=== PATIENT | male | born 1955 | race Caucasian/White ===

== ENCOUNTER 2021-01-07 06:46 | Outpatient (CLI) | payer MEDICARE, OTHER, SELFPAY ==
--- NOTE | 2021-01-07 07:15 | MR_ITS ---
WS: [id number] MRI LEFT SHOULDER NONCONTRAST TECHNIQUE: Sagittal T2, coronal T1, T2 and proton density imaging. Axial gradient PDE imaging. CLINICAL INFORMATION: M67.912 - Unspecified disorder of synovium and tendon, left shoulder COMPARISON: None. FINDINGS: Advanced arthritis AC joint with moderate surrounding edema. Surrounding periarticular soft tissue ed erika. Small amount of subacromial/subdeltoid fluid. Mild downsloping of the acromion. Slight subacromi al spurring. Small AC joint fluid collection consistent with synovitis. Mild edema in the acromium an d distal clavicle. Subacromial space is preserved. Normal supraspinatus. Normal infraspinatus. Normal subscapularis and teres minor. Mild tendinopathy in the subscapularis which appears intact. Normal biceps tendon in the bicipital gr oove. Slight medial displacement of the biceps tendon in the bicipital groove. Tendinopathy of the in tra-articular biceps tendon which appears intact. Moderate to advanced degenerative arthritis at the glenohumeral joint. Hypertrophic spurring about the glenoid with subchondral cystic change. Degenerat nathan fraying of the glenoid labrum. MR/MR shoulder LT wo con* [id number] IMPRESSION: 1. 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 2. Slight subacromial spurring with mild downsloping acromion. Small amount of subacromial/subdeltoid fluid. 3. Rotator cuff is intact. 4. Biceps tendon is intact within the bicipital groove with slight medial subl uxation. 5. Biceps labral anchor appears intact. Tendinopathy within the intra-articula r biceps tendon. 6. Advanced degenerative arthritis at the glenohumeral joint with hypertrophic spurring and subchondral cystic change with degenerative edema.
== END 2021-01-07 06:47 | disposition home or self-care (01) ==
LOC: RADSHAW 06:51
PROVIDERS: PCP Registered Nurse; Visit Provider Registered Nurse
DX: M67.912 Unspecified disorder of synovium and tendon, left shoulder (principal); M19.012 Primary osteoarthritis, left shoulder
CPT/HCPCS: 73221

== ENCOUNTER → 2021-04-28 08:52 | Outpatient (BNVA) | payer MEDICARE, OTHER, SELFPAY | PROVIDERS: PCP Registered Nurse; Visit Provider Registered Nurse | DX: Z20.822 Contact with and (suspected) exposure to COVID-19 (principal) | CPT/HCPCS: 87635 ==

== ENCOUNTER → 2022-06-14 12:31 | Outpatient (BNVA) | payer MEDICARE, OTHER, SELFPAY | PROVIDERS: PCP Registered Nurse; Referring Provider Registered Nurse; Visit Provider Podiatrist Foot & Ankle Surgery | DX: M77.52 Other enthesopathy of left foot and ankle (principal) | CPT/HCPCS: 73630; 99203 ==

== ENCOUNTER → 2022-07-12 10:19 | Outpatient (BNVA) | payer MEDICARE, OTHER, SELFPAY | PROVIDERS: PCP Registered Nurse; Visit Provider Podiatrist Foot & Ankle Surgery | DX: M77.52 Other enthesopathy of left foot and ankle (principal) | CPT/HCPCS: 99213 ==

== ENCOUNTER → 2022-09-20 12:50 | Outpatient (BNVA) | payer MEDICARE, OTHER, SELFPAY | PROVIDERS: PCP Registered Nurse; Visit Provider Podiatrist Foot & Ankle Surgery | DX: M77.52 Other enthesopathy of left foot and ankle (principal) | CPT/HCPCS: 99213 ==

== ENCOUNTER 2022-11-01 10:27 | Outpatient (CLI) | payer MEDICARE, OTHER, SELFPAY ==
--- NOTE | 2022-11-01 15:15 | MR_ITS ---
WS: [id number] MRI LEFT FOOT with and without CONTRAST. COMPARISON: LEFT foot radiograph 06/14/2022 Multiplanar, multisequence imaging is performed with and without contrast. MultiHance 20 mL IV. No acute fractures or marrow edema. Mild hallux valgus deformity. Marker is placed along the undersur face of the foot near the second metatarsal head. There is no underlying signal abnormality identifie d on precontrast imaging. The ligaments and tendons appear appropriate. No fluid surrounding the meta tarsal heads. No erosions are identified. On the postcontrast imaging there is mild enhancement and inflammation surrounding the third metatars al head. Area of enhancement involves the plantar plate and the adjacent flexor digitorum longus and brevis tendons. There is enhancement within the capsule surrounding the metatarsal head and extending greatest between the third and fourth metatarsal heads and interphalangeal joints. Indistinctness an d partial tear involving the lateral collateral ligament of the third metatarsal head. MR/MR foot LT wo/w con [id number] IMPRESSION: 1. Enhancement of the plantar soft tissues surrounding the third metatarsal hea d. There is abnormal signal closely associated with the flexor digitorum longus and brevis. The more superficial brevis could be partially torn. 2. There is displacement of the flexor digitorum tendon from being closely asso ciated with the metatarsal head and partial tear of the lateral collateral liga ment of the third metatarsal head. Consistent with injury to the capsule.
== END 2022-11-01 10:28 | disposition home or self-care (01) ==
LOC: RAD 10:28
PROVIDERS: PCP Registered Nurse; Visit Provider Podiatrist Foot & Ankle Surgery
DX: M77.52 Other enthesopathy of left foot and ankle (principal); M79.672 Pain in left foot
CPT/HCPCS: 73720; A9577

== ENCOUNTER → 2022-11-11 10:04 | Outpatient (BNVA) | payer MEDICARE, OTHER, SELFPAY | PROVIDERS: PCP Registered Nurse; Visit Provider Podiatrist Foot & Ankle Surgery | DX: M77.52 Other enthesopathy of left foot and ankle (principal); S99.922A Unspecified injury of left foot, initial encounter; X58.XXXA Exposure to other specified factors, initial encounter | CPT/HCPCS: 99214 ==

== ENCOUNTER 2022-12-08 05:49 | Day surgery (SDC) | payer MEDICARE, OTHER, SELFPAY ==
[2022-12-07 08:51] VITALS: BMI 31.8
--- NOTE | 2022-12-08 | XR_ITS ---
WS: [id number] Left foot, C-arm fluoroscopy, 12/08/2022 Clinical Data: STEVE PICS Comparison: None. Findings: Dr. Sandoval inserted a longitudinal pin to fuse the left second toe. There was a calcaneal osteotomy and osteotomy of the left fifth metatarsal XR/XR foot LT 2V [id number] Impression: Multiple left foot surgical procedures
[2022-12-08 06:04] VITALS: BP 151/103; PULSE 71; RESP 18; TEMP 36.2; O2SAT 96
[2022-12-08] MEDS: CELEcoxib 200 mg Capsule 400 MG PO (06:30)
[2022-12-08] MEDS: sodium chloride 0.9% 1,000 ML 30 ML IV (06:31)
[2022-12-08] MEDS: gabapentin 300 mg Capsule PO (06:31)
--- NOTE | 2022-12-08 06:43 | ANES.PREANE2 ---
Pre-Anesthetic Assessment Height/Weight: Height 1.83 m Weight 106.594 kg Temp Pulse Resp BP Pulse Ox O2 Del Method 97.2 F L 71 18 151/103 96 12/08/22 06:04 12/08/22 06:04 12/08/22 06:04 12/08/22 06:04 12/08/22 06:04 12/08/22 06:07 Preop Diagnosis: Left foot 2nd and 3rd Metatarsophalangeal joint plantar plate rupture Operation Date: 12/08/22 07:00 Proposed Procedures p ?Repair flexor tendon left foot 2nd and 3rd metatarsophalangeal joint CPT 24787 CPT 91281,M66.372(Left) - Henri Sandoval DPM Familial anesthetic complications: None Was Beta Renae taken within 24 hours: N/A Was Clonidine taken within 24 hours: N/A Last intake: Intake Last Liquid Date 12/07/22 Last Liquid Time 19:30 Last Solid Date 12/07/22 Last Solid Time 19:30 Social No alcohol and No tobacco Exam alert, oriented x 3, clear to auscultation bilaterally and regular rate & rhythm Airway Mallampati: Class II Dentition: full CV/HEM Hypertension Anesthetic Plan ASA status: 2 Anesthesia: MAC Risk of > 500 ml blood loss (7ml/kg in children): No Medications/Allergies Home Medications Medication Instructions Recorded Confirmed Last Taken Type losartan 50 mg tablet 50 mg PO QPM 12/07/22 12/07/22 12/06/22 History hydrocodone 5 mg-acetaminophen 325 1 tab PO Q6H PRN pain #24 tabs 12/08/22 Unknown Rx mg tablet Allergies Allergy/AdvReac Type Severity Reaction Status Date / Time No Known Allergies Allergy Verified 12/08/22 05:58 Current Medications Generic Name Dose Route Start Last Admin Trade Name Freq PRN Reason Stop Dose Admin Sodium Chloride 1,000 mls @ 30 mls/hr 12/08/22 06:00 12/08/22 06:31 Sodium Chloride 0.9% IV 12/09/22 05:59 30 mls/hr .Q24H BE Administration PFSH Anesthesia Medical History Seasonal and perennial allergic rhinitis Social History Smoking and tobacco status: never smoked Alcohol intake: never Adopted: No Caregiver/support person: No Lives independently: No service: No Current occupational status: employed Sexually active: Yes Current gender identity: Male Data Anesthesia Cardiac Studies: No Data to Display
--- NOTE | 2022-12-08 06:47 | W.PM.OPSUD ---
Surgery/Procedure H&P Update DATE OF PROCEDURE: December 08, 2022 DATE H&P PERFORMED: 11/11/22 CHANGES TO PREVIOUS DOCUMENTATION: No changes PREOP DIAGNOSIS: Left foot 2nd and 3rd Metatarsophalangeal joint plantar plate rupture PLANNED PROCEDURE: Operation Date: 12/08/22 07:00 Proposed Procedures p ?Repair flexor tendon left foot 2nd and 3rd metatarsophalangeal joint CPT 82681 CPT 95209,M66.372(Left) - Henri Sandoval DPM
[2022-12-08] MEDS: ceFAZolin 2,000 MG in sodium chloride 0.9% (plus) 50 ML 100 MG IV (06:57)
[2022-12-08 07:56] VITALS: BP 123/66; PULSE 64; RESP 14; TEMP 36.1; O2SAT 96
[2022-12-08 08:00] VITALS: BP 123/76; PULSE 62; RESP 14; O2SAT 96
[2022-12-08 08:05] VITALS: BP 125/87; PULSE 63; RESP 15; O2SAT 96
--- NOTE | 2022-12-08 08:13 | PM.OP ---
Operative Report Date of procedure: December 08, 2022 Pre-op diagnosis: Preop Diagnosis Left foot 2nd and 3rd Metatarsophalangeal joint plantar plate rupture Post-op diagnosis: Same Post-op findings: Left foot second metatarsophalangeal joint plantar plate attenuation with extensor contraction and predislocation Procedure done: Left foot flexor tendon repair/plantar plate repair CPT 35670 Implants: 1 size large tenotac 2.0 from [employer] Pathology: None Surgeon: Dr. Henri Sandoval, D.P.M. Estimated blood loss: Less than 5 cc 28 minutes Complications: None Findings: See above Procedure: Patient is a 67-year-old male that has a history of second metatarsophalangeal joint predislocation syndrome. The patient has had the aforementioned chief complaint for some time. Conservative treatment measures have been attempted and the patient has opted for surgical intervention at this time. A lengthy discussion regarding the procedure, including risks and complications has been had with the patient and is noted in the recent clinic note. Written and verbal consent have been obtained. All patient questions have been answered to the patient?s satisfaction. No written or verbal guarantees have been given or implied. The patient has been NPO since midnight. The history has been reviewed and the history and physical is current. The signed consent was confirmed and placed in the patient chart. Patient imaging has been reviewed and is consistent with the diagnosis. Under mild sedation, the patient was brought into the operating room and placed on the table in the supine position. IV antibiotics were given by the anesthesia team as preoperative surgical prophylaxis. IV sedation was then performed by the anesthesiateam. A pneumatic tourniquet was then placed about the left ankle. The operative extremity was then prepped and draped in the usual fashion. The extremity was then elevated and exsanguinated before the tourniquet was inflated to 250 mmHg. After inflation, the following procedure was then performed. Attention was directed to the left foot where predislocation of the second metatarsophalangeal joint was noted with dorsiflexion at the metatarsophalangeal joint in the sagittal plane was noted. This deformity was reducible. First, a 0.045 K wire was driven into the distal aspect of the toe and into the proximal phalanx. Next, a second wire was driven from plantar to dorsal through the proximal diaphysis of the proximal phalanx. Positioning of the wire was confirmed on C-arm imaging. Next, a #15 blade was used to make a plantar stab incision around the wire. Dissection was carried down through subcutaneous and superficial fascia to the level of the flexor tendon and plantar plate. Next, a second stab incision was made on the dorsal aspect of the second digit around the wire. Dissection was carried down to the extensor tendon. Next, a hand drill was used to drill over the wire from plantar to dorsal preparation for the tenotac implant. Next, the implant was inserted plantarly with the segmented tarsal phalangeal joint maximally plantarflexed. The dorsal component was then inserted over the wire and tensioned down. The implant was noted to be securely fixated. Good positioning of the implant was noted on C-arm imaging as well as clinically. The sites were then irrigated with sterile saline before attention was directed to closure. Incisions were closed with 4-0 nylon in horizontal mattress fashion. The tourniquet was let down and good hyperemic response was noted to all digits of the left foot. The incision sites were dressed with Xeroform, 4 x 4 gauze, Kerlix and Paco bandage. The patient tolerated the procedure and anesthesia well and without complication. The patient was transported from the operating room to the recovery room with vital signs stable and vascular status intact to all digits of the left foot. The patient was given both written and verbal instructions to remain minimal weightbearing in postoperative shoe to the operative extremity, to keep dressings/splint clean, dry and intact and to take pain medication as directed. The patient will follow-up in the outpatient setting at their scheduled appointment. The patient was discharged with my personal number and was instructed to call if any questions or issues should arise. They were discharged home once anesthesia criteria was met.
[2022-12-08 08:18] VITALS: BP 134/84; PULSE 59; RESP 16; TEMP 36.2; O2SAT 95
[2022-12-08 08:45] VITALS: BP 138/82; PULSE 57; RESP 18; O2SAT 94
--- NOTE | 2022-12-08 14:10 | ANE.PACU2 ---
Inpatient post-anesthesia follow up: Airway intact: Yes Vital signs: Temperature 97.1 F Pulse Rate 57 Respiratory Rate 18 Blood Pressure 138/82 Pulse Oximetry 94 Oxygen Delivery Me thod Room Air Oxygen Flow Rate Fraction of Inspir ed Oxygen Hydration adequate: Yes Nausea and vomiting: No Pain level: 1 Mental status: Baseline
== END 2022-12-08 09:05 | disposition home or self-care (01) ==
PROVIDERS: PCP Registered Nurse; Visit Provider Podiatrist Foot & Ankle Surgery
PROC: (CPT 28200; principal; 2022-12-08 07:00)
DX: M66.372 Spontaneous rupture of flexor tendons, left ankle and foot (principal); I10 Essential (primary) hypertension
CPT/HCPCS: 28200; 73620; 76000; C1713; J0690; J2704; J3010; J3490; J7030

== ENCOUNTER → 2022-12-23 09:10 | Outpatient (BNVA) | payer MEDICARE, OTHER, SELFPAY | PROVIDERS: PCP Registered Nurse; Visit Provider Podiatrist Foot & Ankle Surgery | DX: M77.52 Other enthesopathy of left foot and ankle (principal); S99.922A Unspecified injury of left foot, initial encounter; X58.XXXA Exposure to other specified factors, initial encounter | CPT/HCPCS: 99024 ==

== ENCOUNTER → 2023-01-06 10:59 | Outpatient (BNVA) | payer MEDICARE, OTHER, SELFPAY | PROVIDERS: PCP Registered Nurse; Visit Provider Podiatrist Foot & Ankle Surgery | DX: M77.52 Other enthesopathy of left foot and ankle (principal) | CPT/HCPCS: 99024 ==

== ENCOUNTER → 2023-02-10 09:45 | Outpatient (BNVA) | payer MEDICARE, OTHER, SELFPAY | PROVIDERS: PCP Registered Nurse; Visit Provider Podiatrist Foot & Ankle Surgery | DX: M77.52 Other enthesopathy of left foot and ankle (principal) | CPT/HCPCS: 99024 ==

== ENCOUNTER → 2023-06-08 15:02 | Outpatient (BNVA) | payer MEDICARE, OTHER, SELFPAY | PROVIDERS: PCP Registered Nurse; Visit Provider Registered Nurse | DX: R30.0 Dysuria (principal); J30.2 Other seasonal allergic rhinitis | CPT/HCPCS: 81000 ==

== ENCOUNTER → 2023-06-20 09:30 | Outpatient (BNVA) | payer MEDICARE, OTHER, SELFPAY | PROVIDERS: PCP Registered Nurse; Visit Provider Registered Nurse | DX: Z00.00 Encounter for general adult medical examination without abnormal findings (principal); E78.5 Hyperlipidemia, unspecified; E55.9 Vitamin D deficiency, unspecified; I10 Essential (primary) hypertension; E53.8 Deficiency of other specified B group vitamins; Z12.5 Encounter for screening for malignant neoplasm of prostate; Z12.11 Encounter for screening for malignant neoplasm of colon; Z71.3 Dietary counseling and surveillance; Z71.82 Exercise counseling; Z13.6 Encounter for screening for cardiovascular disorders | CPT/HCPCS: 80053; 80061; 82306; 82607; 85025 ==

== ENCOUNTER → 2023-06-27 08:56 | Outpatient (BNVA) | payer MEDICARE, OTHER, SELFPAY | PROVIDERS: PCP Registered Nurse; Referring Provider Registered Nurse; Visit Provider Surgery | DX: Z12.11 Encounter for screening for malignant neoplasm of colon (principal) | CPT/HCPCS: 99024; 99203 ==

== ENCOUNTER 2023-07-20 09:42 | Day surgery (SDC) | payer MEDICARE, OTHER, SELFPAY ==
[2023-07-20 09:55] VITALS: BP 132/93; PULSE 86; RESP 18; TEMP 36.4; O2SAT 96
[2023-07-20 09:56] VITALS: BMI 30.5
[2023-07-20] MEDS: sodium chloride 0.9% 1,000 ML 30 ML IV (10:11)
--- NOTE | 2023-07-20 10:22 | ANES.PREANE2 ---
Pre-Anesthetic Assessment Height/Weight: Height 1.83 m Weight 102.058 kg Temp Pulse Resp BP Pulse Ox O2 Del Method 97.6 F 86 18 132/93 96 Room Air 07/20/23 09:55 07/20/23 09:55 07/20/23 09:55 07/20/23 09:55 07/20/23 09:55 07/20/23 09:55 Preop Diagnosis: screening Operation Date: 07/20/23 10:45 Proposed Procedures p 13015 colon G0121 screen colon A risk Z12.11(Not Applicable) - Merlin Calero DO Familial anesthetic complications: none Was Beta Renae taken within 24 hours: N/A Was Clonidine taken within 24 hours: N/A Last intake: Intake Last Liquid Date 07/19/23 Last Liquid Time 22:00 Last Solid Date 07/18/23 Social No alcohol and No tobacco Exam alert, oriented x 3, clear to auscultation bilaterally and regular rate & rhythm Airway Submandibular: within normal limits Cervical ROM: within normal limits Mallampati: Class I Dentition: chipped and full Pulmonary Sleep Apnea CV/HEM Hypertension None reported Hepatic None reported GI None reported Metabolic None reported Musc/skel Lower Back Pain and Osteoarthritis/DJD Neuropsych None reported Anesthetic Plan ASA status: 2 Anesthesia: MAC Risk of > 500 ml blood loss (7ml/kg in children): No Medications/Allergies Home Medications Medication Instructions Recorded Confirmed Last Taken Type losartan 50 mg tablet 50 mg PO DAILY 07/18/23 07/20/23 07/19/23 History Allergies Allergy/AdvReac Type Severity Reaction Status Date / Time No Known Allergies Allergy Verified 07/20/23 09:55 Current Medications Generic Name Dose Route Start Last Admin Trade Name Freq PRN Reason Stop Dose Admin Sodium Chloride 1,000 mls @ 30 mls/hr 07/20/23 10:00 07/20/23 10:11 Sodium Chloride 0.9% IV 07/21/23 09:59 30 mls/hr .Q24H BE Administration PFSH Anesthesia Medical History Essential hypertension Seasonal and perennial allergic rhinitis Surgical History Hx of appendectomy Hx of shoulder surgery right Family History Mother Hypertension Social History Smoking and tobacco/nicotine status: never used tobacco/nicotine Alcohol intake: never Substance/Drug Use: never Adopted: No Caregiver/support person: No Lives independently: No service: No Current occupational status: employed Sexually active: Yes Do you think of yourself as: Straight/Heterosexual Current gender identity: Male Data Anesthesia Cardiac Studies: No Data to Display
--- NOTE | 2023-07-20 11:15 | W.PM.OPSUD ---
Surgery/Procedure H&P Update DATE OF PROCEDURE: July 20, 2023 DATE H&P PERFORMED: 06/27/23 H&P UPDATE INFORMATION: I have reviewed H&P completed within last 30 days, I have examined patient prior to procedure and No changes to prior documentation PREOP DIAGNOSIS: screening PLANNED PROCEDURE: Operation Date: 07/20/23 10:45 Proposed Procedures p 97572 colon G0121 screen colon A risk Z12.11(Not Applicable) - Merlin Calero, DO
[2023-07-20 11:40] VITALS: BP 121/77; PULSE 69; RESP 12; TEMP 36.2; O2SAT 92
[2023-07-20 11:50] VITALS: BP 132/85; PULSE 69; RESP 14; O2SAT 92
[2023-07-20 11:59] VITALS: BP 125/84; PULSE 63; RESP 18; TEMP 36.6; O2SAT 94
--- NOTE | 2023-07-20 12:10 | ANE.PACU2 ---
Inpatient post-anesthesia follow up: Airway intact: Yes Vital signs: Temperature 97.9 F Pulse Rate 63 Respiratory Rate 18 Blood Pressure 125/84 Pulse Oximetry 94 Oxygen Delivery Me thod Room Air Oxygen Flow Rate Fraction of Inspir ed Oxygen Hydration adequate: Yes Nausea and vomiting: No Pain level: 1 Mental status: Baseline
== END 2023-07-20 12:12 | disposition home or self-care (01) ==
PROVIDERS: PCP Registered Nurse; Visit Provider Surgery
PROC: 0DJD8ZZ Inspection of Lower Intestinal Tract, Via Natural or Artificial Opening Endoscopic (ICD-10-PCS; CPT 45378; principal; 2023-07-20 10:45)
DX: Z12.11 Encounter for screening for malignant neoplasm of colon (principal); K63.5 Polyp of colon; G47.30 Sleep apnea, unspecified; I10 Essential (primary) hypertension
CPT/HCPCS: 45385; 88305; G0121; J2704; J7030

== ENCOUNTER → 2023-08-08 08:14 | Outpatient (BNVA) | payer MEDICARE, OTHER, SELFPAY | PROVIDERS: PCP Registered Nurse; Visit Provider Surgery | DX: Z09 Encounter for follow-up examination after completed treatment for conditions other than malignant neoplasm (principal); K42.9 Umbilical hernia without obstruction or gangrene | CPT/HCPCS: 99214 ==

== ENCOUNTER → 2024-01-11 09:26 | Outpatient (BNVA) | payer MEDICARE, OTHER, SELFPAY | PROVIDERS: PCP Registered Nurse; Visit Provider Registered Nurse | DX: I10 Essential (primary) hypertension (principal); M19.90 Unspecified osteoarthritis, unspecified site; N40.0 Benign prostatic hyperplasia without lower urinary tract symptoms | CPT/HCPCS: 80053; 84153; 85651; 86140 ==

== ENCOUNTER → 2024-02-05 09:07 | Outpatient (BNVA) | payer MEDICARE, OTHER, SELFPAY | PROVIDERS: PCP Registered Nurse; Visit Provider Registered Nurse | DX: I10 Essential (primary) hypertension (principal); J30.89 Other allergic rhinitis; K42.9 Umbilical hernia without obstruction or gangrene; M77.8 Other enthesopathies, not elsewhere classified; J01.90 Acute sinusitis, unspecified; R10.31 Right lower quadrant pain | CPT/HCPCS: 80053; 83036; 85651; 86141 ==

== ENCOUNTER → 2024-07-11 13:53 | Outpatient (BNVA) | payer MEDICARE, OTHER, SELFPAY | PROVIDERS: PCP Registered Nurse; Referring Provider Registered Nurse; Visit Provider Specialist | DX: G56.03 Carpal tunnel syndrome, bilateral upper limbs (principal) | CPT/HCPCS: 95910 ==

== ENCOUNTER → 2024-08-23 09:35 | Outpatient (BNVA) | payer MEDICARE, OTHER, SELFPAY | PROVIDERS: PCP Registered Nurse; Visit Provider Student in an Organized Health Care Education/Training Program | DX: G56.03 Carpal tunnel syndrome, bilateral upper limbs (principal) | CPT/HCPCS: 73110; 99204 ==

== ENCOUNTER 2024-09-23 08:53 | Day surgery (SDC) | payer MEDICARE, OTHER, SELFPAY ==
[2024-09-23] VITALS (7 sets, daily range): BP systolic 120–183; BP diastolic 71–87; PULSE 60–90; RESP 14–17; TEMP 36.5–37.2; O2SAT 95–98; BMI 32.3
--- NOTE | 2024-09-23 09:19 | P.ANESASSM_ITS ---
Pre-Anesthetic Assessment Height/Weight: Height 6 ft Weight 238 lb Temp Pulse Resp BP Pulse Ox O2 Del Method 98.2 F 90 16 146/87 95 Room Air 09/23/24 09:13 09/23/24 09:13 09/23/24 09:13 09/23/24 09:13 09/23/24 09:13 09/23/24 09:13 Preop Diagnosis: Carpal tunnel syndrome Operation Date: 09/23/24 11:00 Proposed Procedures p Carpal Tunnel Release(Left) - Eugenio Martinez, DO Was Beta Renae taken within 24 hours: N/A Was Clonidine taken within 24 hours: N/A Last intake: Intake Last Liquid Date 09/22/24 Last Liquid Time 20:00 Last Solid Date 09/22/24 Last Solid Time 20:00 Social No alcohol and No tobacco Exam alert, oriented x 3, clear to auscultation bilaterally and regular rate & rhythm Airway Submandibular: within normal limits Cervical ROM: within normal limits Mallampati: Class II Dentition: full Anesthetic Plan ASA status: 2 Anesthesia: General Other: No prior issues with anesthesia, patient recently had a colonoscopy without problems NPO since yesterday History of hypertension on losartan. Preop BP 146/87 Denies any pulmonary issues METs greater than 4 Plan for MAC anesthetic Medications/Allergies Home Medications Medication Instructions Recorded Confirmed Last Taken Type losartan 100 mg tablet See Rx Instructions .Route 08/12/24 09/19/24 09/22/24 Rx .COMPLEX #90 tabs Allergies Allergy/AdvReac Type Severity Reaction Status Date / Time No Known Allergies Allergy Verified 09/19/24 14:08 [facility] Anesthesia Medical History Essential hypertension Seasonal and perennial allergic rhinitis Surgical History Hx of appendectomy Hx of shoulder surgery right Family History Mother Hypertension Social History Smoking and tobacco/nicotine status: never used tobacco/nicotine Alcohol intake: never Substance/Drug Use: never Adopted: No Caregiver/support person: No Lives independently: No service: No Current occupational status: employed Sexually active: Yes Do you think of yourself as: Straight/Heterosexual Current gender identity: Male Data Anesthesia Cardiac Studies: 2 No Data to Display
[2024-09-23] MEDS: acetaminophen 1,000 MG/100 ML PIGGYBACK 400 MG IV (09:42)
[2024-09-23] MEDS: ketorolac 30 mg/mL INJ IVP (09:46)
[2024-09-23] MEDS: sodium chloride 0.9% 1,000 ML 30 ML IV (09:46)
--- NOTE | 2024-09-23 09:49 | W.PM.OPSFHP ---
Same Day Surgery H&P Indication for Procedure/HPI DATE OF PROCEDURE: September 23, 2024 CHIEF COMPLAINT/INDICATIONFOR SURGICAL PROCEDURE: Left carpal tunnel syndrome PREOP DIAGNOSIS: Left carpal tunnel syndrome PLANNED PROCEDURE: Operation Date: 09/23/24 11:00 Proposed Procedures p Carpal Tunnel Release(Left) - Eugenio Martinez DO Medications/Allergies* Allergies/Adverse Reactions Allergy/AdvReac Type Severity Reaction Status Date / Time No Known Allergies Allergy Verified 09/19/24 14:08 Current Medications: Generic Name Dose Route Start Last Admin Trade Name Freq PRN Reason Stop Dose Admin Sodium Chloride 1,000 mls @ 30 mls/hr 09/23/24 09:15 09/23/24 09:46 Sodium Chloride 0.9% IV 09/24/24 09:14 30 mls/hr .Q24H BE Administration Pertinent History/Comorbid Conditions* Medical History (Updated 07/15/24 @ 15:50 by GUILLERMO Ken) Essential hypertension Seasonal and perennial allergic rhinitis Surgical History (Updated 12/29/22 @ 09:54 by GUILLERMO Koehler) Hx of appendectomy Hx of shoulder surgery right Family History (Updated 06/27/23 @ 09:31 by CATALINO Stafford) Hypertension Mother Social History Smoking and tobacco/nicotine status: never used tobacco/nicotine Alcohol intake: never Substance/Drug Use: never Adopted: No Caregiver/support person: No Lives independently: No service: No Current occupational status: employed Sexually active: Yes Do you think of yourself as: Straight/Heterosexual Current gender identity: Male Pertinent Exam Findings alert, oriented x 3, operative site marked and procedure specific exam findings Please refer to detailed orthopedic examination on 08/23/2024 listed below: Left upper extremity examination: normal c-spine ROM Negative spurlings Negative Tinel's at the shoulder negating Tinel's at elbow Mild median nerve compression test left wrist Mild weakness and thenar atrophy noted on the left side Positive Tinel's at the left carpal tunnel Positive Phalen's Good intrinsic strength With no weakness Recommendations Surgery/Procedure today Other Plans: Plan to proceed to the OR today for left carpal tunnel release. Patient understands the ins and outs procedure the risk benefits complication alternatives surgery and through shared decision-making elects proceed with surgical intervention. All questions answered at this time. Coding Level of Care Code Acute Code for Chg Fwd
[2024-09-23] MEDS: ceFAZolin 2,000 MG in sodium chloride 0.9% (plus) 50 ML 100 MG IV (09:54)
[2024-09-23] MEDS: ROPivacaine 0.5% SDV 30 mL 25 MG INJECTION (10:21)
[2024-09-23] MEDS: lidocaine-epi 2% PF 1:200,000 20 mL SDV 5 ML XX (10:21)
--- NOTE | 2024-09-23 10:29 | W.PM.BPON ---
Date of Procedure: 09/23/2024 Surgeon: Eugenio Martinez DO Admitting Office Escort(s): Richardson Martinez PA-C Procedure(s) performed: Left carpal tunnel release Findings of the procedure(s): Left carpal tunnel syndrome underwent procedure as planned without issues or complications Estimated blood loss: 5 mL Specimen(s) removed: None Post-operative diagnosis: Left carpal tunnel syndrome
--- NOTE | 2024-09-23 10:30 | P.OP_ITS ---
Operative Report Date of procedure: September 23, 2024 Surgeon: Eugenio Martinez DO Cooper Apprentice: Richardson Martinez PA-C: ROBERT was necessary for assistance in this case with hand positioning to execute the procedure, retraction and protection of neurovascular structures as well as to assist with wound closure and dressing application. Procedure: Preop Diagnosis: Left Carpal Tunnel Syndrome Post-op diagnosis: Same Procedure done: 1. Left carpal tunnel release Surgeon: Eugenio Martinez DO Anesthesia: MAC (Local) Estimated blood loss: 5 mL Tourniquet time 8 minutes IV fluids: See anesthesia record Complications: None Findings: See operative report narrative Condition: stable Disposition: same day Brief History: Patient is a pleasant 68 year-old male with left carpal tunnel syndrome. Robert lucas has been worked up in the outpatient setting findings and physical examination consistent with this. Patient nerve conduction studies consistent with carpal tunnel syndrome. We detailed out patient's risk benefits complication alternatives with surgical and nonsurgical treatment options. Through shared decision making, patient agrees to proceed with surgical intervention of the left carpal tunnel release . Patient understands and agrees with current plan. All questions answered. Patient elects to proceed with surgical intervention with carpal tunnel release. Procedure: Patient seen and evaluated in the preoperative holding area. Consent was reviewed and signed with patient. Correct extremity was marked. Patient was seen evaluated by the anesthesia department once cleared for surgery was brought back to the operative suite. Patient was kept on [facility] in supine position all bony prominences were well-padded patient properly secured to the bed. Left upper extremity was then placed onto an armboard. A nonsterile tourniquet was applied to the left upper arm. Patient underwent anesthesia per the anesthesia department. Patient's left upper extremity was then prepped and draped in standard orthopedic fashion. Final timeout performed. Patient received appropriate preoperative antibiotics. Under sterile aseptic technique patient received local anesthesia over the preplanned carpal tunnel incision site. Esmarch was used to exsanguinate the left upper extremity and tourniquet was insufflated to 250 mmHg. A standard mini open left carpal tunnel incision was made. Starting distally at Stevens's cardinal line in line with the fourth ray extending proximally distal to the wrist crease centered over the carpal tunnel. Sharp scalpel incision was made through skin and subcutaneous tissue. Self-retaining retractor was placed and the palmar fascia was identified. This was then split longitudinally and direct visualization of the transverse carpal ligament was then made. I then utilizing scalpel feathered through the transverse carpal ligament until I entered the floor of the transverse carpal tunnel ligament into the carpal tunnel. Next I switched to dissection scissors and completed my release of the transverse carpal ligament distally with care to protect the recurrent motor branch. I completely released into the palmar fat and until no entrapment was noted distally. Care was made to protect the superficial palmar arch during my distal dissection. Next, nasal speculum placed proximally for retraction of soft tissue on top of the Transverse carpal ligament. Next the contents of the carpal tunnel where protected and and subsequently utilizing dissection scissors under loupe magnification completely released the transverse carpal ligament proximally into the antebrachial fascia. Care was made to protect the palmar cutaneous branch by keeping my scissors curved ulnarly. Once completely released, I then placed my [place] and had appropriate decompression of the carpal tunnel proximally as well as distally. I then inspected the contents of the carpal tunnel which showed an hourglass shape of the median nerve showing its compression. No masses were noted. Tendons appeared healthy. Wound was then thoroughly irrigated. Tourniquet deflated. Hemostasis satisfactory with bipolar electrocautery. I then closed the incision with interrupted nylon stitches. Xeroform 4 x 4's and a bulky soft dressing was applied to the left upper extremity. Patient was then awakened from anesthesia and taken to PACU in stable condition. Patient tolerated procedure without complications. Disposition: Patient taken to PACU in stable condition recovering well. Dressing clean dry and intact. Patient will receive appropriate discharge instructions as well as pain medication postoperatively. Patient to follow-up with me in the office in 2 weeks. They understand they may be weightbearing as tolerated to the left hand. Patient should keep incision clean dry and intact. Patient understands if any questions or concerns may contact the office.
--- NOTE | 2024-09-23 10:50 | PM.PACU ---
PACU note Narrative: Patient is a 68-year-old just underwent a left carpal tunnel release. Patient transferred to PACU in stable condition. Pain is well controlled. Dressing on hand is dry and in place. Patient's fingers are warm and well-perfused. Patient can wiggle fingers. normal cap refill under 2 seconds. Patient has normal elbow range of motion. Unable to assess sensation due to residual localized anesthetic. Exam: awake Disposition: discharged
--- NOTE | 2024-09-23 10:58 | SUR.PHASEII ---
ROM, SENSATION AND CAP REFILL OF FINGERS OF LEFT HAND.
== END 2024-09-23 11:40 | disposition home or self-care (01) ==
PROVIDERS: PCP Registered Nurse; Visit Provider Student in an Organized Health Care Education/Training Program
PROC: (CPT 64721; principal; 2024-09-23 10:50)
DX: G56.02 Carpal tunnel syndrome, left upper limb (principal); I10 Essential (primary) hypertension
CPT/HCPCS: 64721; J0131; J0690; J1885; J2704; J2795; J7030

== ENCOUNTER → 2024-10-09 08:04 | Outpatient (BNVA) | payer MEDICARE, OTHER, SELFPAY | PROVIDERS: PCP Registered Nurse; Visit Provider Physician Assistant | DX: Z98.890 Other specified postprocedural states (principal) | CPT/HCPCS: 99024 ==